=== PATIENT | female | born 1940 | race Caucasian/White ===

== ENCOUNTER 2016-12-25 13:30 | Observation (INO) | payer BC, OTHER ==
--- NOTE | 2017-01-15 07:05 | PDHPUP ---
History & Physical Update H&P update statement: This history and physical update is based on an assessment of the patient which was completed after admission or registration (within 24 hours), but prior to the surgery/procedure. H&P update: H&P reviewed & patient examined, no change in patient's condition since H&P completed
[2017-01-15] MEDS ORDERED: ceFAZolin 2 GM/DEXTROSE 100 ML IV ONE (08:44)
[2017-01-15] MEDS ORDERED: LIDOCAINE 1% 2 ML INJ ID PRN (09:02)
[2017-01-15] MEDS ORDERED: LR 1,000 ML IV ONE (09:02)
[2017-01-15] MEDS ORDERED: CHLORHEXIDINE GLUC HIBICLENS 118 ML BTL TP ONE (09:10)
[2017-01-15] MEDS ORDERED: THROMBIN (BOVINE) 5,000 UNIT VIAL TP ONE ×2 (09:10→11:07)
[2017-01-15] MEDS ORDERED: BUPIVACAINE/EPI 0.5% 30 ML SDV ONE ×2 (09:10→11:20)
[2017-01-15] MEDS ORDERED: DEPO METHYLPREDNISOLONE 40 MG/ML SDV ONE (09:10)
[2017-01-15] MEDS ORDERED: BACITRACIN 50,000 UNITS/10 ML SYR IRR ONE (09:11)
--- NOTE | 2017-01-15 09:22 | PDANEPAE ---
ANE History of Present Illness here for lami ANE Past Medical History - Cardiovascular History Hx Hypertension: Yes Hx Arrhythmias: No Hx Chest Pain: No Hx Coronary Artery / Peripheral Vascular Disease: Yes Hx CHF / Valvular Disease: No Hx Palpitations: No Cardiovascular History Comment: CARDIAC STENT. [place] 2009 - Pulmonary History Hx COPD: No Hx Asthma/Reactive Airway Disease: No Hx Recent Upper Respiratory Infection: No Hx Oxygen in Use at Home: No Hx Sleep Apnea: No Sleep Apnea Screening Result - Last Documented: Negative Pulmonary History Comment: SARCOIDOSIS. ALPHA 1 - Neurologic History Hx Cerebrovascular Accident: No Hx Seizures: No Hx Dementia: No Neurologic History Comment: CARPAL TUNNEL SURGERY HELPED TINGLING IN HANDS. N/ T TO LEFT LEG AND FOOT - Endocrine History Hx Diabetes: No Hypothyroid: No Hyperthyroid: No Obesity: moderate - Renal History Hx Renal Disorders: Yes Renal History Comment: INCONTINENCE- WEARS PAD - Liver History Hx Hepatic Disorders: No - Neurological & Psychiatric Hx Hx Neurological and Psychiatric Disorders: Yes Neurological / Psychiatric History Comment: ANXIETY. DEPRESSION - Cancer History Hx Cancer: No - Congenital Disorder History Hx Congenital Disorders: No - GI History GERD: mild Hx Gastrointestinal Disorders: Yes Gastrointestinal History Comment: REFLUX - Other Health History Other Health History: WEARS GLASSES - Chronic Pain History Chronic Pain: Yes (LEFT LEG AND FOOT, BACK) - Surgical History Prior Surgeries: HYSTERECTOMY. LIPOMA REMOVALS ON SCALP. STAR CLOSURE REMOVED. ULNAR NERVE TRANSPOSED. CATARACTS. CARPAL TUNNEL SURGERY ANE Review of Systems - Exercise capacity Exercise capacity: >=4 METS METS (RN): 4 METS ANE Patient History - Allergies Allergies/Adverse Reactions: ampicillin Allergy (Verified 12/12/16 10:18) Rash shellfish derived Allergy (Verified 12/12/16 10:18) Tetanus Vaccines and Toxoid Allergy (Verified 12/12/16 10:18) - Home Medications Home medications: home medication list seen and reviewed Home Medications: Amitriptyline HCl 25 mg PO HS 12/09/16 [Last Taken 01/14/17 20:45] Aspirin [Aspirin 81mg (*)] 81 mg PO DAILY 12/09/16 [Last Taken 01/14/17 08:00] Carvedilol [Coreg (*)] 3.125 mg PO BID 12/09/16 [Last Taken 01/15/17 06:00] Herbals/Supplements -Info Only 1 ea PO DAILY 12/09/16 [Last Taken 01/08/17] Multivitamins [Multivitamin (*)] 1 each PO DAILY 12/09/16 [Last Taken 01/08/17] [place]-3 Fatty Acids [Fish Oil 1000 mg (*)] 1,000 mg PO BID 12/09/16 [Last Taken 01/08/17] Omeprazole [Prilosec 20 mg] 40 mg PO DAILY 12/09/16 [Last Taken 01/15/17 06:00] Pravastatin Sodium 20 mg PO HS 12/09/16 [Last Taken 01/14/17 20:45] - NPO status NPO Since - Liquids (Date): 01/14/17 NPO Since - Liquids (Time): 21:00 NPO Since - Solids (Date): 01/14/17 NPO Since - Solids (Time): 18:30 - Smoking Hx Smoking Status: Never smoked - Family Anes Hx Family Hx Anesthesia Complications: NONE ANE Labs/Vital Signs - Vital Signs Blood Pressure: 144/74 Heart Rate: 77 Respiratory Rate: 18 O2 Sat (%): 98 Height: 157.48 cm Weight: 77.111 kg ANE Physical Exam - Airway Neck exam: FROM Mallampati Score: Class 1 - Pulmonary Pulmonary: no respiratory distress - Cardiovascular Cardiovascular: regular rate and rhythym - ASA Status ASA Status: III ANE Anesthesia Plan Anesthesia Plan: general endotracheal anesthesia
[2017-01-15] MEDS ORDERED: fentaNYL 100 MCG/2 ML INJ ONE ×3 (09:25→12:12)
[2017-01-15] MEDS ORDERED: PROPOFOL/EMULSION 500 MG/50 ML BOTTLE IV ONE (09:26)
[2017-01-15] MEDS ORDERED: MAGNESIUM HYDROXIDE 30 ML UDCUP PO PRN (09:36)
[2017-01-15] MEDS ORDERED: diphenhydrAMINE 25 MG CAP PO PRN (09:36)
[2017-01-15] MEDS ORDERED: LACTULOSE 20 GM/30 ML UDCUP PO PRN (09:36)
[2017-01-15] MEDS ORDERED: POLYETHYLENE GLYCOL 3350 17 GM PKT PO PRN (09:36)
[2017-01-15] MEDS ORDERED: BISACODYL 10 MG SUPP PR PRN (09:36)
[2017-01-15] MEDS ORDERED: ONDANSETRON 4 MG/2 ML VIAL IVP PRN ×2 (09:36→10:50)
[2017-01-15] MEDS ORDERED: NS 1,000 ML IV SCH (09:45)
[2017-01-15] MEDS ORDERED: fentaNYL 100 MCG/2 ML INJ IVP PRN (10:50)
[2017-01-15] MEDS ORDERED: NALOXONE HCL 0.4 MG/ML INJ IVP PRN (10:50)
[2017-01-15] MEDS ORDERED: HYDROmorphONE/DILAUDID 1 MG/ML SYR IVP PRN (10:50)
[2017-01-15] MEDS ORDERED: PROMETHAZINE HCL 25 MG/ML INJ IVP PRN (10:50)
[2017-01-15] MEDS ORDERED: BUPIVACAINE 0.25% 30 ML SDV ONE ×2 (11:19→11:54)
--- NOTE | 2017-01-15 12:34 | SOAPPROG ---
SOAP Progress Note Assessment/Plan: Post Op Visit: S: Awake and alert. NAD. Pt with expected lower back pain O: AFVSS/PERRLA/EOMI no droop CN 2-12 grossly intact +lt touch 5/5 BUE/BLE = CDI A/P: 76 yo female that is s/p left L4/5 and L5/S1 doron-laminectomy -orders in place -call with any questions or concerns -pt understands and agrees -pt seen by Dr Ca as well 01/15/17 12:31 Objective: Vital Signs Temp Pulse Resp BP Pulse Ox 36 C 76 21 H 139/74 H 99 01/15/17 11:49 01/15/17 11:49 01/15/17 12:20 01/15/17 12:16 01/15/17 12:20 01/14/17 01/15/17 01/16/17 05:59 05:59 05:59 Intake Total 20 Balance 20 ICD10 Worksheet Patient Problems: Problems Problem Status Onset Lumbar radicular pain Acute Lumbar stenosis Acute - ICD10 Problem Qualifiers (1) Lumbar stenosis (2) Lumbar radicular pain
[2017-01-15] MEDS: ONDANSETRON DISINTEGRATING 4 MG TAB PO PRN ×2 (12:46→14:46)
--- NOTE | 2017-01-15 14:07 | GOP ---
[f rep st] OPERATIVE REPORT DATE OF OPERATION: 01/15/2017 SURGEON: Loulou Ca MD PSYCHIATRIC NURSING AIDE: Andry Pizano PA-C. PREOPERATIVE DIAGNOSIS: 1. Left lumbosacral radiculopathy. 2. Left lateral recess stenosis, L4-5. 3. Left foraminal stenosis, L5-S1. POSTOPERATIVE DIAGNOSIS: 1. Left lumbosacral radiculopathy. 2. Left lateral recess stenosis, L4-5. 3. Left foraminal stenosis, L5-S1. PROCEDURE PERFORMED: Left L4-5, L5-S1 hemilaminotomy with left lateral recess decompressions, media l facetectomy, and foraminotomies ([id number], [id number], microscope). FINDINGS: ESTIMATED BLOOD LOSS: 50 cc. INDICATIONS: The patient is an elderly female with left lower extremity pain. Her MRI demonstrated some left lateral recess stenosis at L4-5 and moderately severe left foraminal stenosis at L5-S1. It was not clear to me which level was giving rise to her L5 radicular pattern of pain. Her radiogr aphic findings were not overwhelming but yet there was still left lateral recess stenosis at the C4- 5 level that I thought originally was contributing, but upon further review, there was also foramina l stenosis at the level below for the same nerve exiting the spinal canal. I suggested a 2-level de compression. We discussed foraminal decompressions and the occasional need to perform a complete fa cetectomy of the spine, including a spinal fusion for stabilization, but I did not think it was nece ssary. The risks of CSF leak, continued symptoms, and the possible need for future spine surgery we re discussed she understood these risks, and she did want to proceed. Another motivation to avoid a ny hardware in her back as she does tend to be sensitive to various metals, and we did not want to c onsider such a procedure. DESCRIPTION OF PROCEDURE: Patient was taken to the operating room, placed in supine position. Gene ral anesthesia was begun. She was flipped prone onto the [place] frame. Care was taken to pad all p oints of contact. Her back was sterilely prepped and draped in usual fashion. A localizing x-ray w as taken. We made a midline incision that was 18 mm in length. The subcutaneous tissue was dissect ed using Bovie cautery down to the fascia, and a subperiosteal dissection was made down the left L5- S1 lamina. We exposed the L4-5 lamina. Self-retaining retractor was placed. A localizing x-ray wa s taken. The operating microscope was introduced. We drilled a left L4-5, L5-S1 hemilaminotomy, op ened ligamentum flavum, and decompressed the left lateral recess of the spinal canal beginning at L5 -S1, where we removed the medial portion of the L5-S1 facet and followed our decompression rostrally through the arch of L5 all the way up to the L4-5 level, removing the hypertrophic ligamentum flavu m and decompressing the left lateral recess. We undercut the L4 lamina and got a good decompression at each of these levels. There was no significant foraminal stenosis at L4-5, but we then took ban leeanne Kerrisons and followed the L5 nerve inferior to the L5 pedicle and out into its neural foramen, and we performed a generous L5-S1 foraminotomy for the exiting L5 nerve root. The nerve itself was somewhat pink as opposed to pure white, possibly consistent with chronic compression. We did not vi olate the nerve. It was clearly identified. There was some epidural bleeding, and that was control led with both direct pressure and cottonoids as well as some minimal use of bipolar cautery. Final x-ray was taken, confirming the extent of our decompression at L4-5, 5-1. We then closed the incisi on in multiple layers using Vicryl sutures after applying some Depo-Medrol to the exiting roots. St heath-Strips were applied to the skin. The patient was reversed from anesthesia, extubated, and trans ferred to recovery room in stable condition. COMPLICATIONS: None. /[id number]/MODL
[2017-01-15] MEDS: ACETAMINOPHEN 500 MG TAB PO SCH ×2 (14:24→19:42)
--- NOTE | 2017-01-15 16:00 | POSTANESTH ---
Post Anesthetic Evaluation Cardiovascular Status: Normal, Stable Respiratory Status: Normal, Stable Level of Consciousness/Mental Status: Can Participate in Eval Pain Control: Adequate, Prn Tx Ordered Nausea/Vomiting Control: Adequate, Prn Tx Ordered Complications Possibly Related to Anesthesia: None Noted
[2017-01-15] MEDS: ceFAZolin 2 GM/DEXTROSE 100 ML IV SCH (18:23)
[2017-01-15] MEDS: METHOCARBAMOL 750 MG TAB PO PRN (18:23)
[2017-01-15] MEDS: CARVEDILOL 3.125 MG TAB PO SCH (18:49)
[2017-01-15] MEDS: FAMOTIDINE 20 MG TAB PO SCH (19:42)
[2017-01-15] MEDS: oxyCODONE IR 5 MG TAB PO PRN ×2 (19:43→21:04)
[2017-01-15] MEDS: SENNOSIDES/DOCUSATE SODIUM TAB PO SCH (19:43)
[2017-01-15] MEDS ORDERED: AMITRIPTYLINE HCL 25 MG TAB PO SCH (21:00)
[2017-01-16] MEDS: oxyCODONE IR 5 MG TAB PO PRN ×3 (01:46→15:52)
[2017-01-16] MEDS: ceFAZolin 2 GM/DEXTROSE 100 ML IV SCH (01:49)
[2017-01-16] MEDS: ACETAMINOPHEN 500 MG TAB PO SCH ×3 (06:08→15:52)
--- NOTE | 2017-01-16 08:54 | NEUSURGPN ---
Assessment/Plan: A/P: 76 yo female that is s/p left L4/5 and L5/S1 doron-laminectomy - POD #1 -PT/OT -Pain management -No brace needed -Incision cdi -DC later today -D/w Dr Ca as well Subjective: Pt resting in bed, states her left leg feels better. Objective: AAOx3 NAD VSS MAEx4 Motor 5/5 BLE Incision cdi dressing in place +LT Urinary Catheter in Place: No - Physician Discussed Patient with : [facility] Physical Exam - Vitals, I&O, Labs I and O 01/15/17 01/16/17 01/17/17 05:59 05:59 05:59 Intake Total 1095 Output Total 1550 250 Balance -455 -250 Weight 77.111 kg Intake: Oral (ml) 870 IV Infused (ml) 225 Ns 1,000 ml @ 75 mls/hr 225 IV CONT HEIDI Rx#: [id number] Output: Urine (ml) 1550 250 Toilet 1550 250 Other: Intake Quantity Yes Sufficient Number of Voids Toilet 2 1 Vital Signs Temp Pulse Resp BP Pulse Ox 36.8 C 72 18 124/64 H 96 01/16/17 03:27 01/16/17 08:17 01/16/17 08:17 01/16/17 08:17 01/16/17 08:17 ICD10 Worksheet Patient Problems: Problems Problem Status Onset Lumbar radicular pain Acute Lumbar stenosis Acute
[2017-01-16] MEDS: SENNOSIDES/DOCUSATE SODIUM TAB PO SCH (08:58)
[2017-01-16] MEDS: FAMOTIDINE 20 MG TAB PO SCH (08:58)
[2017-01-16] MEDS: METHOCARBAMOL 750 MG TAB PO PRN ×2 (08:59→15:53)
[2017-01-16] MEDS: CARVEDILOL 3.125 MG TAB PO SCH (08:59)
[2017-01-16] MEDS ORDERED: NON-FORMULARY NEW DRUG (Omeprazole [Prilosec 20 Mg] 40 MG) PO SCH (09:00)
[2017-01-16] MEDS ORDERED: PANTOPRAZOLE SODIUM 40 MG TAB PO SCH (09:00)
[2017-01-16 14:45] VITALS: BP 106/48; PULSE 76; RESP 16; TEMP 97.9; O2SAT 92
[2017-01-16] MEDS ORDERED: PRAVASTATIN SODIUM 20 MG TAB PO SCH (21:00)
[2017-01-18] MEDS ORDERED: ENOXAPARIN 40 MG/0.4 ML SYR SC SCH (09:00)
== END 2017-01-16 16:21 | disposition home or self-care (01) ==
LOC: F3N 01-15 08:35
PROVIDERS: ADMIT Neurological Surgery; ATTEND Neurological Surgery
PROC: 0SB20ZZ Excision of Lumbar Vertebral Disc, Open Approach (ICD-10-PCS; principal; 2017-01-15 10:30)
PROC: 00NY0ZZ Release Lumbar Spinal Cord, Open Approach (ICD-10-PCS; principal; 2017-01-15 10:30)
DX: M48.06 Spinal stenosis, lumbar region (principal); M48.07 Spinal stenosis, lumbosacral region; M54.17 Radiculopathy, lumbosacral region
CPT/HCPCS: 63047; 63048; 76001; 97161; 97165; 97530; G0378; J0690; J1030; J2704; J3010

== ENCOUNTER 2017-10-15 07:30 | Inpatient (IN) | payer OTHER, BC ==
[2017-11-03] MEDS ORDERED: BUPIVACAINE/EPI 0.5% 30 ML SDV ONE (06:38)
[2017-11-03] MEDS ORDERED: THROMBIN (BOVINE) 5,000 UNIT VIAL TP ONE (06:39)
[2017-11-03] MEDS ORDERED: BACITRACIN 50,000 UNITS/10 ML SYR IRR ONE (06:39)
[2017-11-03] MEDS ORDERED: LR 1,000 ML IV ONE (06:44)
[2017-11-03] MEDS ORDERED: LIDOCAINE 1% 2 ML INJ ID PRN (06:44)
[2017-11-03] MEDS ORDERED: CHLORHEXIDINE GLUC HIBICLENS 118 ML BTL TP ONE (06:52)
--- NOTE | 2017-11-03 07:00 | PDANEPAE ---
ANE History of Present Illness Patient presents for minimally invasive TLIF ANE Past Medical History - Cardiovascular History Hx Hypertension: Yes Hx Arrhythmias: No Hx Chest Pain: No Hx Coronary Artery / Peripheral Vascular Disease: Yes Hx CHF / Valvular Disease: No Hx Palpitations: No Cardiovascular History Comment: [place]ARDIAC STENT. [place] 2008. [employer] IN [place] [phone] - Pulmonary History Hx COPD: No Hx Asthma/Reactive Airway Disease: No Hx Recent Upper Respiratory Infection: No Hx Oxygen in Use at Home: No Hx Sleep Apnea: No Sleep Apnea Screening Result - Last Documented: Negative Pulmonary History Comment: Hx SARCOIDOSIS. ALPHA 1 - Neurologic History Hx Cerebrovascular Accident: No Hx Seizures: No Hx Dementia: No Neurologic History Comment: N/T TO LEFT LEG AND FOOT - Endocrine History Hx Diabetes: No - Renal History Hx Renal Disorders: No Renal History Comment: INCONTINENCE- WEARS PAD - Liver History Hx Hepatic Disorders: Yes Hepatic History Comment: fatty liver - Neurological & Psychiatric Hx Hx Neurological and Psychiatric Disorders: Yes Neurological / Psychiatric History Comment: ANXIETY. DEPRESSION - Cancer History Hx Cancer: No - Congenital Disorder History Hx Congenital Disorders: Yes Congenital History Comment: heart disease,variation of factor v liden - GI History Hx Gastrointestinal Disorders: Yes Gastrointestinal History Comment: REFLUX - Other Health History Other Health History: PINCHED NERVE IN NECK CAUSING LT SHLDR WEAKNESS AND LOSS OF ROM. - Chronic Pain History Chronic Pain: Yes (LEFT LEG AND FOOT, BACK) - Surgical History Prior Surgeries: LUMBAR LAMINECTOMY 12/2016. HYSTERECTOMY. LIPOMA REMOVALS ON SCALP. STAR CLOSURE REMOVED. LT.ULNAR NERVE TRANSPOSED. CATARACTS. LT.CARPAL TUNNEL SURGERY ANE Review of Systems Review of Systems: - Exercise capacity METS (RN): 4 METS ANE Patient History - Allergies Allergies/Adverse Reactions: ampicillin Allergy (Verified 10/29/17 17:14) Rash methocarbamol Allergy (Verified 10/29/17 17:14) Hypotension oxycodone Allergy (Verified 10/29/17 17:15) Itching shellfish derived Allergy (Verified 10/29/17 17:14) Tetanus Vaccines and Toxoid Allergy (Verified 10/29/17 17:14) - Home Medications Home medications: home medication list seen and reviewed Home Medications: Amitriptyline HCl 25 mg PO HS 12/09/16 [Last Taken 01/14/17 20:45] Aspirin [Aspirin 81mg (*)] 81 mg PO DAILY 12/09/16 [Last Taken 01/14/17 08:00] Carvedilol [Coreg (*)] 3.125 mg PO BID 12/09/16 [Last Taken 01/15/17 06:00] Omeprazole [Prilosec 20 mg] 40 mg PO DAILY 12/09/16 [Last Taken 01/15/17 06:00] Pravastatin Sodium 20 mg PO HS 12/09/16 [Last Taken 01/14/17 20:45] Gabapentin [Neurontin 300 MG (*)] 300 mg PO HS 09/04/17 [Last Taken Unknown] Gabapentin [Neurontin 300 MG (*)] 600 mg PO DAILY@,09/04/17 [Last Taken Unknown] - NPO status NPO Status: no food or drink >8 hours - Smoking Hx Smoking Status: Never smoked - Family Anes Hx Family Hx Anesthesia Complications: NONE ANE Labs/Vital Signs - Vital Signs Height: 157.48 cm Weight: 77.111 kg ANE Physical Exam - Airway Neck exam: decreased ROM Mallampati Score: Class 2 Mouth exam: small mouth opening - Pulmonary Pulmonary: no respiratory distress - Cardiovascular Cardiovascular: regular rate and rhythym - ASA Status ASA Status: III ANE Anesthesia Plan Anesthesia Plan: general endotracheal anesthesia (RBA discussed)
[2017-11-03] MEDS ORDERED: PROPOFOL/EMULSION 500 MG/50 ML BOTTLE IV ONE (07:06)
[2017-11-03] MEDS ORDERED: fentaNYL 100 MCG/2 ML INJ ONE ×2 (07:06→09:41)
[2017-11-03] MEDS ORDERED: PROPOFOL 200 MG/20 ML VIAL ONE (07:06)
[2017-11-03] MEDS ORDERED: ROCURONIUM 50 MG/5 ML VIAL ONE (07:11)
[2017-11-03] MEDS ORDERED: ONDANSETRON 4 MG/2 ML VIAL ONE (07:11)
[2017-11-03] MEDS ORDERED: SUCCINYLCHOLINE CHLORIDE 200 MG/10 ML SYR IVP ONE (07:11)
[2017-11-03] MEDS ORDERED: DEXAMETHASONE 4 MG/ML VIAL ONE (07:12)
[2017-11-03] MEDS ORDERED: LIDOCAINE 2% 5 ML SDV ONE (07:12)
[2017-11-03] MEDS ORDERED: ceFAZolin 2 GM/DEXTROSE 100 ML IV ONE (07:13)
[2017-11-03] MEDS ORDERED: CEFAZOLIN 2 GM/DEXTROSE/100 ML BAG IV ONE (07:14)
[2017-11-03] MEDS ORDERED: ATROPINE SULFATE 1 MG/ML VIAL ONE (08:21)
[2017-11-03] MEDS ORDERED: GLYCOPYRROLATE 0.2 MG/1 ML VIAL ONE ×3 (08:28→11:23)
[2017-11-03] MEDS ORDERED: PHENYLEPHRINE 10 MG/ML SDV ONE (08:42)
[2017-11-03] MEDS ORDERED: morphINE PF 5 MG/10 ML INJ ONE (11:10)
[2017-11-03] MEDS ORDERED: NEOSTIGMINE METHYLSULFATE 10 MG/10 ML MDV ONE (11:23)
[2017-11-03] MEDS ORDERED: NALOXONE HCL 0.4 MG/ML INJ IVP PRN (11:27)
[2017-11-03] MEDS ORDERED: fentaNYL 100 MCG/2 ML INJ IVP PRN (11:27)
[2017-11-03] MEDS ORDERED: ONDANSETRON 4 MG/2 ML VIAL IVP PRN ×2 (11:27→11:43)
[2017-11-03] MEDS ORDERED: LR 500 ML IV PRN (11:27)
[2017-11-03] MEDS ORDERED: MAGNESIUM HYDROXIDE 30 ML UDCUP PO PRN (11:43)
[2017-11-03] MEDS ORDERED: HYDROmorphONE/DILAUDID 2 MG TAB PO PRN (11:43)
[2017-11-03] MEDS ORDERED: POLYETHYLENE GLYCOL 3350 17 GM PKT PO PRN (11:43)
[2017-11-03] MEDS ORDERED: HYDROmorphone HCL/NS 0.5 MG/ML SYR IVP PRN (11:43)
[2017-11-03] MEDS ORDERED: ONDANSETRON DISINTEGRATING 4 MG TAB PO PRN (11:43)
[2017-11-03] MEDS ORDERED: LACTULOSE 20 GM/30 ML UDCUP PO PRN (11:43)
[2017-11-03] MEDS ORDERED: BISACODYL 10 MG SUPP PR PRN (11:43)
[2017-11-03] MEDS ORDERED: NS 1,000 ML IV SCH (11:45)
--- NOTE | 2017-11-03 12:07 | POSTANESTH ---
Post Anesthetic Evaluation Cardiovascular Status: Similar to Pre-Op Cond Respiratory Status: Similar to Pre-op Cond. Level of Consciousness/Mental Status: Mildly Sleepy, Arousable Pain Control: Adequate, Prn Tx Ordered Nausea/Vomiting Control: Adequate, Prn Tx Ordered Complications Possibly Related to Anesthesia: None Noted
--- NOTE | 2017-11-03 12:08 | POSTOPPROG ---
Post Op Note Date of Operation: 11/03/17 Surgeon: Rojas Montaño [employer] Girls Golf Coach: Usha Lema PA-C Anesthesia: GET(General Endotracheal) Pre-op Diagnosis: Lumbar stenosis with radiculopathy Post-op Diagnosis: same Procedure: L4/5, L5/S1 Minimally invasive TLIF Inf/Abcess present in the surg proc area at time of surgery?: No Depth: Organ Space EBL: 100-500 SOAP Progress Note Assessment/Plan: Assessment: Plan: 11/03/17 12:03 S: Patient waking up in PACU, stable with expected back pain. 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
[2017-11-03] MEDS ORDERED: DIAZEPAM 5 MG TAB PO PRN (12:09)
--- NOTE | 2017-11-03 12:27 | PDMN ---
Medical Necessity Medical necessity: [facility] IP only surgery; cpt 72153 & [id number] L4/5, L5/S1 TLIF
--- NOTE | 2017-11-03 12:47 | GOP ---
[f rep st] OPERATIVE REPORT DATE OF OPERATION: 11/03/2017 SURGEON: Rojas Montaño MD NEUROSURGEON: Rojas Montaño MD. STATISTICAL TYPIST: Usha Abebe P.A.-C. ANESTHESIA: General endotracheal. PREOPERATIVE DIAGNOSIS: Severe foraminal stenosis with left-sided radiculopathy at L4-5 and L5-S1. POSTOPERATIVE DIAGNOSIS: Severe foraminal stenosis with left-sided radiculopathy at L4-5 and L5-S1. PROCEDURE PERFORMED: 1. L4-5, L5-S1 transforaminal lumbar interbody fusion. 2. Placement of interbody device at L4-5, L5-S1. 3. Posterolateral fusion L4-S1. 4. Pedicle screw fixation, L4, L5, S1. 5. [place] of local autograft. 6. Use of allograft BMP and cancellous bone chips. 7. Use of the operative microscope. 8. O-arm/stealth stereotactic neuronavigation for screw placement and case navigation. 9. Intraoperative neurophysiologic monitoring including somatosensory evoked potentials and EMG. FINDINGS: Successful TLIF. SPECIMENS: There were no specimens. ESTIMATED BLOOD LOSS: 50 cc. INDICATIONS: The patient is a 76-year-old woman with a history of left leg pain. She had a laminectomy done by Dr. Ca a few months back, but this failed to adequately treat her leg pain. Repeat MRI showed severe foraminal stenosis L5-S1 with compression of the exiting L5 nerve root. She also had severe foraminal stenosis at L4-5 although is not clear that this was symptomatic at the moment. She was scheduled for L4-S1 transforaminal lumbar interbody fusion. DESCRIPTION OF PROCEDURE: After informed consent was obtained from the patient , the patient was brought to the operating room and a formal time-out was performed, identifying the patient by name, medical record number and date of . Preoperative antibiotics were given. The endotracheal tube was placed and general endotracheal anesthesia was smoothly induced. All appropriate monitoring leads were placed for intraoperative somatosensory evoked potentials and EMG. The patient was then turned in the prone position on the Familia table and all appropriate pressure points were padded and checked. The lumbar region was prepped and draped in the normal sterile fashion. A stab incision was made over the right iliac crest, and the percutaneous frame was placed with bicortical purchase into the iliac crest for navigation. The O-arm was then used to obtain stereotactic spin of the region showing L3-S1. This was then used to localize the pedicle entry points at L4, L5, and S1 on both sides and lateral Leigh incisions were marked about 2 cm in length. On the left side the incision was made with a 10 blade and the subcutaneous tissues were dissected using monopolar electrocautery. The muscle fascia was opened in line with the incision. The stereotactic MetRx dilating system was then used to dock the dilator onto the facet joint at L4-5 on the left. A 18mm x 7cm Quadrant retractor was then docked onto the facet joint. The operative microscope was brought on the field and the remainder of the procedure was performed under high-power magnification. First, the facet joint was cleared of all of its muscular attachments with the Bovie, and the anatomy was clearly identified throughout the foramen from the lower portion of the pedicle of L4 to the upper portion of the pedicle of L5. The high-speed drill with a 3 mm mickey bur was then used to drill troughs beneath the pedicle of L4 and above the pedicle of L5 and medially through the lamina. The inferior facet of L4 was removed and the superior facet of L5 was completely removed completely unroofing the foramen. The remaining portion of the lower inferior facet of L4 was removed and the lateral recess was completely decompressed. The nerve root was visualized and was well decompressed. At this point, the disk space was identified and a small incision was made in the anulus. The curettes and punches were then used to perform a complete diskectomy and the cartilaginous endplates were removed down to bleeding bone on the bony endplates. A piece of BMP and some locally harvested morselized autograft with allograft cancellous bone chips was then placed contralaterally into the disk space and the space was sized for an 8 x 28 mm Medtronic Elevate cage, which was packed with BMP. This was then placed stereotactically into the disk space and opened to its full extent of 12 mm. More bone graft was then packed lateral to the cage for interbody fusion. Some local anesthetic and Gelfoam was then placed over the nerve root. The retractor system was then moved down and docked on the facet of L5-S1 and the same procedure was performed. The high-speed drill was used to drill the inferior facet of L5 and the superior facet of L1, completely unroofing the foramen. The L5 nerve root was completely followed up laterally and the foramen was completely decompressed. The lamina was removed and the S1 nerve root was also completely decompressed. At this point, the L5 nerve root was retracted slightly superiorly in the foramen and the disk space was incised. Again, curettes and punches were used to perform a complete diskectomy and the cartilaginous endplates were removed. Once the diskectomy was adequate, some BMP and bone graft was placed across the contralateral side. The disk space was also sized for an 8 x 28 mm Medtronic Elevate cage, which was packed with BMP and placed stereotactically into the disk space. Again, more bone graft was placed lateral to the cage for an interbody fusion. Once this was complete , the wound was copiously irrigated using bacitracin irrigation. The retractor system was removed. A 2nd O-arm spin was obtained showing the relevant anatomy of the cages in good placement. The entry points for pedicle screws were then marked using a sharp tip awl and a 5.5 mm tap was then used to tap each pedicle on both sides from L4-S1. Medtronic TI legacy hydroxyapatite covered screws were then placed stereotactically using the O-arm in the following manner. At L4, 6.5 x 55 mm screw was placed on the left and a 6.5 x 50 mm screw on the right. At L5, a 6.5 x 50 mm screw was placed bilaterally. At S1, 6.5 x 45 mm screws were placed bilaterally. AP and lateral x-rays were performed confirming good placement of all screws. At this point down the reduction towers 5.5 x 70 mm Legacy TI rods were placed and reduced into the screw heads. The locking caps were then placed and tightened down to their final torque. The reduction towers were removed. Final AP and lateral x-rays were performed confirming good placement of all the hardware. Again, the wounds were copiously irrigated using bacitracin irrigation. At this point, local anesthetic was infused into the subcutaneous tissue and muscle bilaterally and a lumbar puncture was performed at the L5-S1 interspace and 0.2 mg of Duramorph was infused into the intrathecal space for postoperative pain control. The muscle fascia was then closed using interrupted 0 Vicryl. The superficial fascia was closed using interrupted 0 Vicryl. The deep dermis was closed using interrupted 2-0 Vicryl and the skin was closed using Steri-Strips. Stereotactic frame was removed and that wound was also closed using Steri- Strips. Sterile dressings were placed. The patient was awakened in the operating room where she was extubated and was transferred to the PACU in stable condition. There were no operative complications. I was scrubbed and present for the entire procedure. All sponge and needle counts were correct at the end of the case FLUIDS AND URINE OUTPUT: Were per the anesthesia record. DRAINS: There were no drains. /[id number]/MODL MTDD
[2017-11-03] MEDS: ceFAZolin 2 GM/DEXTROSE 100 ML IV SCH ×2 (13:57→22:01)
[2017-11-03] MEDS ORDERED: GABAPENTIN 300 MG CAP PO SCH ×2 (14:00→21:00)
[2017-11-03] MEDS: POLYETHYLENE GLYCOL 3350 17 GM PKT PO SCH ×2 (17:41→22:01)
[2017-11-03] MEDS: CARVEDILOL 3.125 MG TAB PO SCH (20:07)
[2017-11-03] MEDS: SENNOSIDES/DOCUSATE SODIUM TAB PO SCH (20:07)
[2017-11-03] MEDS: AMITRIPTYLINE HCL 25 MG TAB PO SCH (20:07)
[2017-11-03] MEDS: PRAVASTATIN SODIUM 20 MG TAB PO SCH (20:07)
[2017-11-03] MEDS: HYDROCODONE/APAP 5/325 TAB PO PRN (23:03)
[2017-11-04] MEDS ORDERED: GABAPENTIN 300 MG CAP ONE (17:30)
[2017-11-04] MEDS: PRAVASTATIN SODIUM 20 MG TAB PO SCH (21:00)
[2017-11-04] MEDS: POLYETHYLENE GLYCOL 3350 17 GM PKT PO SCH (22:00)
--- NOTE | 2017-11-04 22:31 | ASMTCMCOM ---
CM Note CM Note Notes: Pt s/p TLIF L4-5. Resides with . PT/OT evals pending. CM to follow for d/c planning. Date Signed: 11/04/2017 03:32 PM Electronically Signed By:KENDRA Rich
[2017-11-05] MEDS ORDERED: NS 1,000 ML IV SCH (01:30)
[2017-11-05] MEDS: diphenhydrAMINE 25 MG CAP PO PRN (04:20)
[2017-11-05] MEDS: HYDROCODONE/APAP 5/325 TAB PO PRN ×2 (04:20→15:44)
[2017-11-05] MEDS: AMITRIPTYLINE HCL 25 MG TAB PO SCH ×2 (05:05→21:23)
[2017-11-05] MEDS: CARVEDILOL 3.125 MG TAB PO SCH ×4 (05:06→21:20)
[2017-11-05] MEDS: SENNOSIDES/DOCUSATE SODIUM TAB PO SCH ×4 (05:11→21:24)
[2017-11-05] MEDS: GABAPENTIN 300 MG CAP PO SCH ×5 (05:29→21:23)
[2017-11-05] MEDS: ASPIRIN 81 MG CHEWABLE TAB PO SCH ×2 (07:24→07:45)
[2017-11-05] MEDS: ENOXAPARIN 40 MG/0.4 ML SYR SC SCH ×2 (07:25→07:47)
[2017-11-05] MEDS: PANTOPRAZOLE SODIUM 40 MG TAB PO SCH ×2 (07:25→07:46)
[2017-11-05] MEDS: POLYETHYLENE GLYCOL 3350 17 GM PKT PO SCH ×4 (07:26→21:24)
--- NOTE | 2017-11-05 08:45 | SOAPPROG ---
SOAP Progress Note Assessment/Plan: Assessment: 76 yo F POD #2 L4-S1 TLIF Plan: neuro: stable and doing well overall :) PT/OT post op x-rays look great scd/almaz/lovenox for dvt prophylaxis maybe dc home later today please call with neuro changes discussed with Dr Mendiola 11/05/17 08:41 Subjective: continued back pain, no leg pain, no weakness Objective: Vital Signs Temp Pulse Resp BP Pulse Ox 36.9 C 80 16 111/54 L 93 11/05/17 07:47 11/05/17 07:47 11/05/17 07:47 11/05/17 07:47 11/05/17 07:47 11/04/17 11/05/17 11/06/17 05:59 05:59 05:59 Intake Total 2810 350 Output Total 1450 300 Balance 1360 350 -300 AAOx4, +FC PERRL, EOMI, no facial droop 5/5 + light touch C/D/I ICD10 Worksheet Patient Problems: Problems Problem Status Onset Lumbar radicular pain Acute Lumbar stenosis Acute
--- NOTE | 2017-11-05 14:57 | SOAPPROG ---
[facility] Patient Name: ADITYA [place] I Rpt#: [id number] Unit Number: [id number] Attending/ER Physician: Dolores WYATT Patient Type: ADM IN Adm Date/Source: 11/03/17 PHY Discharge Date: Primary Carrier: MEDICARE INPATIENT SOAP NOTE SOAP Progress Note Assessment/Plan: Assessment: 76 yo female POD #1 sp L4/5 and L5/S1 MIS TLIF doing well itchy but improves with Benedryl mildly low BP - getting IV fluids Plan: Hold AM BP med. follow BP PT/OT as tolerated No need for brace xrays L spine today when she can tolerate it. 11/04/17 07:51 Subjective: lying in bed, comfortable. She felt itchy last night, better now. Denies numbness, tingling or weakness Objective: Vital Signs Temp Pulse Resp BP Pulse Ox 37.0 C 58 L 16 95/54 L 96 11/04/17 07:30 11/04/17 07:30 11/04/17 07:30 11/04/17 07:30 11/04/17 07:30 11/03/17 11/04/17 11/05/17 05:59 05:59 05:59 Intake Total 2810 Output Total 1450 Balance 1360 Alert and oriented x 4 follows commands 5/5 bilat LE sens +LT throughout Dressing: CDI ICD10 Worksheet Patient Problems: Problems Problem Status Onset Lumbar radicular pain Acute Lumbar stenosis Acute *This report may have been compiled using a voice recognition system, and might contain typographical errors and blanks.* Lenyn LANGLEY 11/04/17 0754 <Electronically signed by Lenny LANGLEY> 0 T: NATHAN 11/04/17750 CC:
--- NOTE | 2017-11-05 15:57 | ASMTCMCOM ---
CM Note CM Note Notes: PT/OT rec C and 24/supervision. Spoke with pt and Edwin, they are agreeable to [facility]. Pt plans to d/c to son home in [place] and return to [place] Friday11/09/17. Since there is no home health agency which can service pt at both locations a referral was sent to [facility]. This CM spoke with Sierra who will review the referral and reports they can likely staff pt for Friday or Friday with MD approval. Pt will have family supervision. CM to follow. Date Signed: 11/05/2017 03:56 PM Electronically Signed By:KENDRA Rich
[2017-11-05] MEDS ORDERED: MAGNESIUM CITRATE 300 ML BOTTLE PO ONE (19:15)
[2017-11-05] MEDS: PRAVASTATIN SODIUM 20 MG TAB PO SCH (21:20)
[2017-11-06] MEDS: HYDROCODONE/APAP 5/325 TAB PO PRN ×4 (01:27→21:09)
[2017-11-06] MEDS: diphenhydrAMINE 25 MG CAP PO PRN (01:27)
[2017-11-06] MEDS: ASPIRIN 81 MG CHEWABLE TAB PO SCH (07:15)
[2017-11-06] MEDS: CARVEDILOL 3.125 MG TAB PO SCH ×2 (07:16→20:51)
[2017-11-06] MEDS: GABAPENTIN 300 MG CAP PO SCH ×3 (07:16→21:11)
[2017-11-06] MEDS: PANTOPRAZOLE SODIUM 40 MG TAB PO SCH (07:16)
[2017-11-06] MEDS: ENOXAPARIN 40 MG/0.4 ML SYR SC SCH (07:17)
--- NOTE | 2017-11-06 08:03 | NEUSURGPN ---
Assessment/Plan: Assessment: 76 yo F POD #3 L4-S1 TLIF Plan: neuro: stable and doing well overall, didn't move much yesterday as had constipation issues PT/OT post op x-rays show stable hardware scd/almaz/lovenox for dvt prophylaxis dc plan - home later today vs tomorrow AM please call with neuro changes discussed with Dr Montaño Subjective: Pt resting in bed, states she didn't move much yesterday, had constipation issues. Wants to walk more today. Objective: AAOx3 NAD VSS MAEx4 Motor 5/5 BUE/BLE Incision cdi +LT Urinary Catheter in Place: No Catheter Insertion Date: 11/03/17 - Physician Discussed Patient with : Danyel Neurosurgery Physical Exam - Vitals, I&O, Labs I and O 11/05/17 11/06/17 11/07/17 05:59 05:59 05:59 Intake Total 350 930 250 Output Total 850 Balance 350 80 250 Intake: Oral (ml) 350 930 250 Output: Urine (ml) 850 Bedside Commode 250 Toilet 600 Other: Intake Quantity Yes Sufficient Number of Voids Toilet 2 1 1 Number of Stools Toilet 1 1 Vital Signs Temp Pulse Resp BP Pulse Ox 37.3 C 83 16 119/64 93 11/06/17 07:13 11/05/17 23:43 11/06/17 07:13 11/06/17 07:13 11/06/17 07:13 ICD10 Worksheet Patient Problems: Problems Problem Status Onset Lumbar radicular pain Acute Lumbar stenosis Acute
[2017-11-06] MEDS: SENNOSIDES/DOCUSATE SODIUM TAB PO SCH ×2 (09:25→20:55)
[2017-11-06] MEDS: POLYETHYLENE GLYCOL 3350 17 GM PKT PO SCH ×3 (09:25→23:46)
[2017-11-06] MEDS: CYCLOBENZAPRINE 10 MG TAB PO PRN (14:21)
[2017-11-06] MEDS: AMITRIPTYLINE HCL 25 MG TAB PO SCH (20:51)
[2017-11-06] MEDS: PRAVASTATIN SODIUM 20 MG TAB PO SCH (20:54)
[2017-11-07] MEDS: HYDROCODONE/APAP 5/325 TAB PO PRN ×2 (04:40→10:06)
[2017-11-07] MEDS: CYCLOBENZAPRINE 10 MG TAB PO PRN (04:40)
[2017-11-07 08:46] VITALS: BP 105/60
[2017-11-07] MEDS: ENOXAPARIN 40 MG/0.4 ML SYR SC SCH (09:03)
[2017-11-07] MEDS: GABAPENTIN 300 MG CAP PO SCH (09:04)
[2017-11-07] MEDS: PANTOPRAZOLE SODIUM 40 MG TAB PO SCH (09:05)
[2017-11-07] MEDS: CARVEDILOL 3.125 MG TAB PO SCH (09:05)
[2017-11-07] MEDS: ASPIRIN 81 MG CHEWABLE TAB PO SCH (09:05)
--- NOTE | 2017-11-07 09:19 | PDIAF ---
- Diagnosis Code Status: Full Code - Medication Management Discharge Medications: Medications to Continue on Transfer Amitriptyline HCl 25 mg PO HS 12/09/16 [Last Taken 01/14/17 20:45] Carvedilol [Coreg (*)] 3.125 mg PO BID 12/09/16 [Last Taken 11/03/17 0500] Omeprazole [Prilosec 20 mg] 40 mg PO DAILY 12/09/16 [Last Taken 11/03/17 05:00] Pravastatin Sodium 20 mg PO HS 12/09/16 [Last Taken 01/14/17 20:45] Aspirin [Aspirin 81mg (*)] 81 mg PO DAILY tab.chew 11/07/17 [Last Taken Unknown ] Cyclobenzaprine [Flexeril 10 MG (*)] 10 mg PO TID PRN #60 tab 11/07/17 [Last Taken Unknown] Gabapentin [Neurontin 300 MG (*)] 900 mg PO TID #120 cap 11/07/17 [Last Taken Unknown] Hydrocodone/APAP 5/325 [[place] 5/325 (*)] 1 - 2 tab PO Q4HRS PRN #90 tab [Last Taken Unknown] Sennosides/Docusate Sodium [Senokot-S] 1 - 2 tab PO BID tab 11/07/17 [Last Taken Unknown] Discharge Medications: Refer to the Discharge Home Medication list for PRN reason. - Orders Services needed: Physical Therapy, Occupational Therapy Diet Recommendation: no restrictions on diet Diet Texture: Regular Texture Diet Additional Instructions: No bending/lifting/twisting wear brace when out of bed 5-10lb weight limit follow up in 2-3 weeks for post op visit call [phone] [facility] [phone] - Follow Up Care Current Providers and Referrals: SHANNA CHRISTIANSON [Other] Rojas Montaño MD [Medical Doctor] -
[2017-11-07] MEDS: POLYETHYLENE GLYCOL 3350 17 GM PKT PO SCH (09:20)
[2017-11-07] MEDS: SENNOSIDES/DOCUSATE SODIUM TAB PO SCH (09:20)
--- NOTE | 2017-11-07 09:43 | ASMTLACE ---
[facility] Length of stay for Answers: 3 days current admission Acuity / Level of Answers: Yes Care: Did the patient have an inpatient admission? Comorbidities - select Answers: Coronary Artery Disease all that apply Opioid dependence / Chronic pain Previous myocardial infarction Other Notes: HTN # of Emergency department Answers: 0 visits in the last 6 months Social determinants Answers: Mental health diagnosis (anxiety, depression, pers onality disorders, etc.) Score: 17 Date Signed: 11/07/2017 09:43 AM Electronically Signed By:KENDRA Rich
--- NOTE | 2017-11-07 10:35 | ASMTCMCOM ---
CM Note CM Note Notes: Pt medically stable for d/c with [facility] PT/OT. Orders sent in [employer] and call to Sierra in intake. [facility] can open pt Friday since pt will d/c to son home in [place] until Friday when she will return to [place]. Pt family to transport. Date Signed: 11/07/2017 10:34 AM Electronically Signed By:KENDRA Rich
--- NOTE | 2017-11-07 14:50 | ASDISCHSUM ---
Discharge Information Plan Status:Home with Home Health Medically Cleared to Leave: Discharge Date:11/07/2017 10:55 AM CM D/C Disposition:Home Health Service ADT D/C Disposition:[id number] Projected Discharge Date:11/06/2017 11:00 AM Transportation at D/C:Family Discharge Delay Reason: Follow-Up Date:11/06/2017 11:00 AM Discharge Slot: Final Diagnosis: Placement Information Referral Type:*Home Health Care Services Referral ID:[id number] Provider Name:[facility] Address 1:[address] [place] [address] Address 2: City:[place] Selection Factors: State:[place] Patient Contact Information Contact Name:LILIYA Relationship: Address:[address] City:[place] Alternate Phone: State/Zip Code:[place] [address] Email: Financial Information Financial Class:Medicare Primary Plan Desc:MEDICARE INPATIENT Primary Plan Number:[id number] Secondary Plan Desc:[employer] Secondary Plan Number:[id number] Assessment Information LACE LACE Length of stay for Answers: 3 days current admission Acuity / Level of Answers: Yes Care: Did the patient have an inpatient admission? Comorbidities - select Answers: Coronary Artery Disease all that apply Opioid dependence / Chronic pain Previous myocardial infarction Other Notes: HTN # of Emergency department Answers: 0 visits in the last 6 months Social determinants Answers: Mental health diagnosis (anxiety, depression, pers onality disorders, etc.) Score: 17 Date Signed: 11/07/2017 09:43 AM Electronically Signed By:KENDRA Rich [facility] Progress Note CM Note CM Note Notes: Pt s/p TLIF L4-5. Resides with . PT/OT [facility] pending. CM to follow for d/c planning. Date Signed: 11/04/2017 03:32 PM Electronically Signed By:KENDRA Rich [facility] CM Progress Note CM Note CM Note Notes: PT/OT rec C and 24/supervision. Spoke with pt and Edwin, they are agreeable to [facility]. Pt plans to d/c to son home in [place] and return to [place] Friday11/09/17. Since there is no home health agency which can service pt at both locations a referral was sent to [facility]. This CM spoke with Sierra who will review the referral and reports they can likely staff pt for Friday or Friday with MD approval. Pt will have family supervision. CM to follow. Date Signed: 11/05/2017 03:56 PM Electronically Signed By:KENDRA Rich [facility] CM Progress Note CM Note CM Note Notes: Pt medically stable for d/c with [facility] PT/OT. Orders sent in [employer] and call to Sierra in intake. [place] can open pt Friday since pt will d/c to son home in [place] until Friday when she will return to [place]. Pt family to transport. Date Signed: 11/07/2017 10:34 AM Electronically Signed By:KENDRA Rich Intervention Information Intervention Type:*IM-Signed Date of Service:11/07/2017 09:44 AM Patient Type:Inpatient Staff Member:Lauren Parrish Hours: Discipline: Severity: Comment:
== END 2017-11-07 10:55 | disposition home health service (06) | DRG 460 ==
LOC: F3N 11-03 05:19
PROVIDERS: ADMIT Neurological Surgery; ATTEND Neurological Surgery
PROC: 01NB0ZZ Release Lumbar Nerve, Open Approach (ICD-10-PCS; principal; 2017-11-03 07:15)
PROC: 3E0U0GB Introduction of Recombinant Bone Morphogenetic Protein into Joints, Open Approach (ICD-10-PCS; principal; 2017-11-03 07:15)
PROC: 0QB00ZZ Excision of Lumbar Vertebra, Open Approach (ICD-10-PCS; principal; 2017-11-03 07:15)
PROC: 0ST20ZZ Resection of Lumbar Vertebral Disc, Open Approach (ICD-10-PCS; principal; 2017-11-03 07:15)
PROC: 0SG00AJ Fusion of Lumbar Vertebral Joint with Interbody Fusion Device, Posterior Approach, Anterior Column, Open Approach (ICD-10-PCS; principal; 2017-11-03 07:15)
PROC: 0SG30AJ Fusion of Lumbosacral Joint with Interbody Fusion Device, Posterior Approach, Anterior Column, Open Approach (ICD-10-PCS; principal; 2017-11-03 07:15)
PROC: 0ST40ZZ Resection of Lumbosacral Disc, Open Approach (ICD-10-PCS; principal; 2017-11-03 07:15)
DX: M99.73 Connective tissue and disc stenosis of intervertebral foramina of lumbar region (principal); M54.16 Radiculopathy, lumbar region; M54.17 Radiculopathy, lumbosacral region; I25.10 Atherosclerotic heart disease of native coronary artery without angina pectoris; I10 Essential (primary) hypertension; I25.2 Old myocardial infarction; Z95.5 Presence of coronary angioplasty implant and graft
CPT/HCPCS: 97116-GP; 97161-GP; 97165-GO; 97530-GP; 97535-GO; C1713; C1762; G8978-GP-CJ; G8979-GP-CH; G8979-GP-CI; G8980-GP-CI; G8987-GO-CJ; G8988-GO-CI; G8989-GO-CI; J0330; J0461; J0690; J1100; J1650; J2274; J2370; J2405; J2704; J3010